=== PATIENT | male | born 1960 | race Caucasian/White ===

== ENCOUNTER → 2024-07-04 09:46 | Outpatient (BNVA) | payer OTHER, SELFPAY | PROVIDERS: PCP Pediatrics; Visit Provider Registered Nurse | DX: S70.312A Abrasion, left thigh, initial encounter (principal); S90.32XA Contusion of left foot, initial encounter; S92.355A Nondisplaced fracture of fifth metatarsal bone, left foot, initial encounter for closed fracture; W22.8XXA Striking against or struck by other objects, initial encounter | CPT/HCPCS: 73630; 99204 ==

== ENCOUNTER → 2024-07-10 09:59 | Outpatient (BNVA) | payer OTHER, SELFPAY | PROVIDERS: PCP Pediatrics; Visit Provider Physician Assistant Medical | DX: S70.312A Abrasion, left thigh, initial encounter (principal); S90.32XA Contusion of left foot, initial encounter; S92.355A Nondisplaced fracture of fifth metatarsal bone, left foot, initial encounter for closed fracture; W22.8XXA Striking against or struck by other objects, initial encounter | CPT/HCPCS: 99213 ==

== ENCOUNTER → 2024-07-13 11:31 | Outpatient (BNVA) | payer OTHER, SELFPAY | PROVIDERS: PCP Pediatrics; Visit Provider Physician Assistant Medical | DX: S70.312A Abrasion, left thigh, initial encounter (principal); S90.32XA Contusion of left foot, initial encounter; S92.355A Nondisplaced fracture of fifth metatarsal bone, left foot, initial encounter for closed fracture; W22.8XXA Striking against or struck by other objects, initial encounter | CPT/HCPCS: 99213 ==

== ENCOUNTER → 2024-07-21 15:01 | Outpatient (BNVA) | payer OTHER, SELFPAY | PROVIDERS: PCP Pediatrics; Visit Provider Physician Assistant Medical | DX: S70.12XA Contusion of left thigh, initial encounter (principal); S90.32XA Contusion of left foot, initial encounter; S92.355A Nondisplaced fracture of fifth metatarsal bone, left foot, initial encounter for closed fracture; W22.8XXA Striking against or struck by other objects, initial encounter | CPT/HCPCS: 99213 ==

== ENCOUNTER 2024-07-25 10:00 | Outpatient (REF) | payer OTHER, SELFPAY ==
--- NOTE | ~2024-07-25 | XR_ITS ---
EXAMINATION: XR FOOT 3 OR MORE VIEWS LEFT HISTORY: M79.673 - Pain in unspecified foot COMPARISON: Comparison is made with the prior examination dated 07/04/2024. FINDINGS: Three views of the left foot are submitted. Osseous mineralization is normal. There is a healing fracture of the 5th metatarsal neck with greater callus formation noted. No new fracture is seen. The patient is status post talocalcaneal arthrodesis. The soft tissues are unremarkable. XR/XR foot LT min 3V IMPRESSION: Healing fracture of the 5th metatarsal neck. Electronically signed by: Judd Shaikh MD 07/27/2024 09:49 AM EDT
== END 2024-07-25 10:01 | disposition home or self-care (01) ==
LOC: HO.HOSX 10:00
PROVIDERS: Visit Provider Physician Assistant
DX: M79.672 Pain in left foot (principal); S92.352D Displaced fracture of fifth metatarsal bone, left foot, subsequent encounter for fracture with routine healing
CPT/HCPCS: 73630; 99202

== ENCOUNTER 2024-07-25 13:44 | Outpatient (AMB) | payer OTHER, SELFPAY ==
--- NOTE | 2024-07-25 14:19 | MHC.OFFVIS ---
Intake Visit Reasons: FC-Left 5th metatarsal fracture DOI 07/04/24 Intake Note: Ulises is a 63 year old male who presents today for an evaluation of left 5th metatarsal fracture, DOI 07/04/24. Patient was seen at work connection s/p two separate falls and was referred to orthopedics. He states that he is doing well, no pain at all. Patient mentions that he had bruising on top of his foot. Patient notices that his foot is feeling better. Allergies No Known Allergies Allergy (Verified 07/25/24 14:23) HPI HPI FC-Left 5th metatarsal fracture DOI 07/04/24: Details: Mr. Linda a 63-year-old male who presents to the office today for evaluation of a 5th metatarsal fracture that he sustained while at work on 07/04/2024 when a pipe fell onto his foot. He felt pain afterwards and saw as though she could ?walk it off?. 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 Additionally, the patient states in the past that he sustained a calcaneal fracture and had surgery at [facility]. He had complications in regards to wound healing which led to an infection at that time and reports this also led to an ankle fusion.. He has retained orthopedic hardware that is painful for him and is looking to see if there is a possibility of hardware removal. Review of Systems Const All systems reviewed & are unremarkable except as noted in HPI and below Physical Exam Const General: cooperative, healthy appearing and no acute distress Resp Effort & Inspection: normal respiratory effort and able to speak in complete sentences Extrem Other: Left foot: Normal to inspection. No ecchymosis, erythema, or edema. No tenderness to palpation over the 5th metatarsal head at the fracture site. Prior surgical scar noted along the lateral aspect of the calcaneus. Sensation intact. Pedal Pulse intact. Assessment & Plan Assessment & Plan (1) Fracture of fifth metatarsal bone of left foot: Code(s): S92.352A - Displaced fracture of fifth metatarsal bone, left foot, initial encounter for closed fracture Category: Medical Plan Mr. Linda a 63-year-old male who presents to the office today for evaluation of a 5th metatarsal fracture that he sustained while at work on 07/04/2024 when a pipe fell onto his foot. He felt pain afterwards and saw as though she could ?walk it off?. 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 Additionally, the patient states in the past that he sustained a calcaneal fracture and had surgery at [facility]. He had complications in regards to wound healing which led to an infection at that time and reports this also led to an ankle fusion.. He has retained orthopedic hardware that is painful for him and is looking to see if there is a possibility of hardware removal. While in the office today, we discussed that the 5th metatarsal fracture will heal on its own. There is no acute orthopedic intervention needed at this time. He can return back to work full-time regular duty. In regards to the painful orthopedic hardware I recommend the patient follow up with Dr. Turcios to discuss treatment options due to the past complications the patient has experienced with wound healing. Follow-up will be with Dr. Turcios, sooner if needed. X-rays of the left foot which were obtained while in the office today and were reviewed by me, Devi Durand PA-C, revealed old fracture with nonunion deformity at the head of the 5th metatarsal as well as intact orthopedic hardware in the calcaneus. Coding Level of Care Code New Pt Level 4 (17209) Diagnoses Fracture of fifth metatarsal bone of left foot S92.352A
--- OUTSIDE RECORDS SUMMARY | 2024-07-25 15:54 | XMS_ITS ---
Author Name [facility] Organization Unknown Care Team Organization Name Specialty Phone Email Start Date End Da te [facility] Mary Gray MD Primary Care 02/03/2022 11/15/2023
== END 2024-07-25 14:36 | disposition home or self-care (01) ==
LOC: HO.HOS 13:45
PROVIDERS: PCP Pediatrics; Visit Provider Physician Assistant
DX: S92.352A Displaced fracture of fifth metatarsal bone, left foot, initial encounter for closed fracture (principal); Z04.2 Encounter for examination and observation following work accident
CPT/HCPCS: 99204

== ENCOUNTER → 2024-07-25 13:46 | Outpatient (BNV) | payer OTHER, SELFPAY | PROVIDERS: Visit Provider Radiology Diagnostic Radiology | DX: S92.352D Displaced fracture of fifth metatarsal bone, left foot, subsequent encounter for fracture with routine healing (principal) | CPT/HCPCS: 73630 ==

== ENCOUNTER → 2024-08-01 13:10 | Outpatient (BNVA) | payer OTHER, SELFPAY | PROVIDERS: Visit Provider Physician Assistant Medical | DX: S70.12XD Contusion of left thigh, subsequent encounter (principal); S90.32XD Contusion of left foot, subsequent encounter; S92.355D Nondisplaced fracture of fifth metatarsal bone, left foot, subsequent encounter for fracture with routine healing; W22.8XXD Striking against or struck by other objects, subsequent encounter; Z02.79 Encounter for issue of other medical certificate | CPT/HCPCS: 99213 ==